=== PATIENT | male | born 1995 | race African-American/Black ===

== ENCOUNTER 2017-09-08 14:40 | Emergency (ER) | payer SELFPAY ==
[2017-09-08 14:43] VITALS: BP 124/64; PULSE 108; RESP 16; TEMP 98.4; O2SAT 99
--- NOTE | 2017-09-08 15:17 | RADRPT ---
EXAM DATE/TIME: 09/08/2017 15:10 [facility] COMPARISON: No previous studies available for comparison. INDICATIONS : Right ankle pain post fall today MEDICAL HISTORY : None. SURGICAL HISTORY : None. ENCOUNTER: Initial ACUITY: 1 day PAIN SCORE: 5/10 LOCATION: Right lateral ankle FINDINGS: Three view exam was performed of the right ankle. On the lateral view there is a small cortical avuls ion injury along the superior surface of the talus bone and tarsal navicular bone. There is some foca l soft tissue swelling. Thoracic of the bony structures are intact. There is good alignment the morti se joint.. CONCLUSION: Small cortical avulsion fracture injury along the superior surface of the talus bone and tarsal navic ular bone. Juanjose Springer MD on September 08, 2017 at 15:13 Board Certified Radiologist. This report was verified electronically.
--- NOTE | 2017-09-08 15:43 | PD ---
HPI Chief Complaint: Musculoskeletal Complaint Time Seen by Provider: 15:24 Travel History International Travel<30 days: No Contact w/Intl Traveler<30days: No Traveled to known affect area: No History of Present Illness HPI the patient is a 21-year-old [place] male who presents to the emergency department for right foot pain. The patient states he was play basketball 2 days ago when a large man fell on his foot and he fell backwards onto the left side. The patient complains of pain over the proximal aspect the right foot. He has been using crutches, has difficulty bearing weight secondary to the pain. He denies any pain over the lateral or medial malleus, knee, or hip. He denies any significant swelling. He denies any numbness to the right foot. Symptoms are moderate, exacerbated after some refill on the right foot, and there are no current alleviating factors. PFSH Past Medical History Asthma: Yes ( A CHILD) Tetanus Vaccination: > 5 Years Influenza Vaccination: Yes Past Surgical History Surgical History: No Previous Surgery Social History Alcohol Use: Yes (SOCIALLY) Tobacco Use: No Substance Use: Yes (MARIJUANA) Allergies-Medications (Allergen,Severity, Reaction): Coded Allergies: shellfish derived (Verified Allergy, Intermediate, HIVES, 09/08/17) Reported Meds & Prescriptions Reported Meds & Active Scripts Active No Active Prescriptions or Reported Medications Review of Systems Except as stated in HPI: all other systems reviewed are Neg Musculoskeletal: Positive: Limited ROM, Pain Neurologic: No: Paresthesia, Sensory Disturbance Physical Exam Narrative GENERAL: Awake, alert, pleasant 21-year-old male who appears his stated age and is in no acute respiratory distress. SKIN: Focused skin assessment warm/dry. HEAD: Atraumatic. Normocephalic. EYES: No injection or drainage. MUSCULOSKELETAL: No significant edema of the right foot noted. Positive right dorsalis pedal pulse. Tenderness over the dorsal aspect of the right foot. No tenderness of the medial or lateral malleus. No tenderness of the proximal right fibula. No tenderness of the right hip. The patient is able flex the right hip and right knee without difficulty. NEUROLOGICAL: Awake and alert. No obvious cranial nerve deficits. Motor grossly within normal limits. Normal speech. PSYCHIATRIC: Appropriate mood and affect; insight and judgment normal. Data Data Last Documented VS Vital Signs Date Time Temp Pulse Resp B/P (MAP) Pulse Ox O2 Delivery O2 Flow Rate FiO2 09/08/17 15:20 16 09/08/17 14:43 98.4 108 124/64 (84) 99 Orders Orders Ankle, Complete ([id number]) (09/08/17 ) Ct Foot W/O Contrast (09/08/17 ) Ibuprofen (Motrin) (09/08/17 15:45) Splinting (09/08/17 ) MDM Medical Decision Making Medical Screen Exam Complete: Yes Emergency Medical Condition: Yes Medical Record Reviewed: Yes Interpretation(s) Last Impressions Ankle X-Ray 09/08/17 0000 Signed Impressions: Service Date/Time: Friday, September 08, 2017 15:10 - CONCLUSION: Small cortical avulsion fracture injury along the superior surface of the talus bone and tarsal navicular bone. Juanjose Springer MD CT of the right foot reveals 2 small avulsion fragments at the [place] navicular joint. There are moderate degenerative changes at the tile at the [place] articulation. No other fractures are appreciated. Soft tissue edema is present. Differential Diagnosis Differential diagnosis includes fracture, dislocation, sprain, strain, contusion , hematoma. Narrative Course X-ray the right foot was ordered in triage, does reveal avulsion fractures from the dorsal aspect of the foot. The patient states he is unable to bear weight on the right foot, therefore, noncontrast CT of the right foot was obtained. The patient was administered ibuprofen. CT reveals avulsion fractures, no other significant fractures identified. The patient already has crutches, was placed in a short posterior leg splint. The patient is advised to follow-up with podiatry. Elevate and ice. Medications as directed. The patient will be provided a copy of his x-ray results and CT results at discharge. Diagnosis Primary Impression: Avulsion fracture of navicular bone of right foot Qualified Codes: S92.251A - Displaced fracture of navicular [scaphoid] of right foot, initial encounter for closed fracture Patient Instructions: General Instructions Additional Instructions: Splint and crutches as directed. Follow-up with podiatry. Elevate and ice. Ibuprofen as directed. Return if symptoms worsen or progress. Please provide the patient a copy of his CT results and lab results at discharge. Med/Other Pt SpecificInfo: Prescription(s) given Scripts Hydrocodone-Acetaminophen ([place]) 5 Mg-325 Mg Tab 1 TAB PO Q6H Y for PAIN, #12 TAB 0 Refills Prov: Seth Lomeli MD 09/08/17 Ibuprofen (Ibuprofen) 600 Mg Tab 600 MG PO Q6H Y for Pain/Inflammation, #20 TAB 0 Refills Prov: Seth Lomeli MD 09/08/17 Disposition: 01 DISCHARGE HOME Condition: Stable Seth Lomeli MD Sep 08, 2017 15:43
[2017-09-08] MEDS ORDERED: IBUPROFEN 600 MG TAB PO ONE (15:45)
--- NOTE | 2017-09-08 16:19 | RADRPT ---
EXAM DATE/TIME: 09/08/2017 15:49 [facility] COMPARISON: No previous studies available for comparison. INDICATIONS : Right ankle and foot pain,unable to bear weight, swollen from basketball injury. RADIATION DOSE: 13.16 CTDIvol (mGy) MEDICAL HISTORY : None SURGICAL HISTORY : ENCOUNTER: Initial ACUITY: 1 day PAIN SCALE: 7/10 LOCATION: Right ankle TECHNIQUE: Volumetric scanning of the foot was performed. Using automated exposure control and adjustment of th e mA and/or kV according to patient size, radiation dose was kept as low as reasonably achievable to obtain optimal diagnostic quality images. DICOM format image data is available electronically for re view and comparison. FINDINGS: There 2 small avulsion fragments at the talonavicular joint. There moderate degenerative changes at the talocalcaneal articulation. No other fractures are appreciated Soft tissue edema is present. CONCLUSION: Abnormal CT of the foot. MRI would be much better evaluation of ligamentous instability. Preston Christie MD FACR on September 08, 2017 at 16:13 Board Certified Radiologist. This report was verified electronically.
[2017-09-08] MEDS ORDERED: IBUP-232 PO (16:35)
[2017-09-08] MEDS ORDERED: NORC5TAB PO (16:35)
== END 2017-09-08 17:28 | disposition home or self-care (01) ==
LOC: NEPD 14:40
DX: S92.251A Displaced fracture of navicular [scaphoid] of right foot, initial encounter for closed fracture (principal); J45.909 Unspecified asthma, uncomplicated; W18.30XA Fall on same level, unspecified, initial encounter; Y93.67 Activity, basketball
CPT/HCPCS: 29515; 73610; 73700; 99284; L2114